=== PATIENT | female | born 1990 | race Caucasian/White ===

== ENCOUNTER 2019-05-12 21:20 | Inpatient (IN) ==
[2019-05-12] MEDS ORDERED: ONDANSETRON 4 MG/2 ML VIAL IV PRN (21:31)
[2019-05-12] MEDS ORDERED: BUTORPHANOL 2 MG/ML VIAL IV PRN (21:31)
[2019-05-12] MEDS: LACTATED RINGERS 1,000 ML IV SCH (21:40)
[2019-05-12 22:05] LABS: Basophils % 0.3 % (0.0-0.8); Eosinophils # 0.1 10*3/uL (0.0-0.87); Eosinophils % 0.8 % (0.00-10.9); Hematocrit 30.3 VOL% (35.7-47.0); Hemoglobin 9.2 GM/DL (12.0-16.0); Immature Granulocytes % 1.5 %; Immature Granulocytes Absolute 0.15 #; Lymphocytes # 2.1 10*3/uL (1.4-4.0); Lymphocytes % 20.3 % (21.3-54.2); Mean Corpuscular HGB Conc 30.4 GM/DL (32-36); Mean Platelet Volume 9.2 FL (9.6-12.0); Monocytes % 8.3 % (1.7-12.7); Neutrophils % 68.8 % (38.7-73.9); Platelet Count 275 T/CUMM (130-400); Red Blood Count 3.74 MC/CUMM (3.8-5.5); Red Cell Distribution Width 14.7 % (9.3-17.3); White Blood Count 10.3 T/CUMM (4-12)
[2019-05-12 22:25] LABS: Albumin 2.7 G/DL (3.4-5.0); Bilirubin,Total 0.4 MG/DL (0.2-1.0); Calcium 8.7 MG/DL (8.5-10.1); Osmolality,Calculated 277.4 MOS/KG (273-304); Total Protein 6.7 G/DL (6.4-8.3)
[2019-05-12] MEDS ORDERED: ACETAMINOPHEN 325 MG TABLET PO PRN (22:52)
[2019-05-13] MEDS ORDERED: OXYTOCIN/LR 20 UNIT/1,000 ML BAG IV SCH (04:00)
[2019-05-13] MEDS: AMPICILLIN INJ 2,000 MG in SODIUM CHLORIDE 0.9% 100 ML IV SCH ×3 (04:06→17:12)
[2019-05-13] MEDS ORDERED: diphenhydrAMINE 50 MG/1 ML VIAL IV PRN (04:40)
[2019-05-13] MEDS ORDERED: CITRIC ACID/SODIUM CITRATE 30 ML UDCUP PO ONE (04:40)
[2019-05-13] MEDS ORDERED: FAMOTIDINE 20 MG/2 ML VIAL IV ONE (04:40)
[2019-05-13] MEDS ORDERED: LACTATED RINGERS 250 ML IV PRN (04:40)
[2019-05-13] MEDS ORDERED: ePHEDrine 50 MG/ML AMP IV PRN (04:40)
[2019-05-13] MEDS ORDERED: NALOXONE 0.4 MG/ML VIAL IV PRN (04:40)
[2019-05-13] MEDS ORDERED: fentaNYL 2 MCG/ROPIV 0.2% EPID 100 ML EPIDURAL SCH (05:00)
[2019-05-13] MEDS: LACTATED RINGERS 1,000 ML IV SCH (05:10)
[2019-05-13 08:45] LABS: Apearance,Urine CLEAR (Clear); Bilirubin,Urine Negative (Negative); Blood, Urine Negative (Negative); Glucose,Urine (UA) Negative (Negative); Ketones,Urine 20 mg/dL (Negative); Mucus,Urine Occasional /LPF (Occasional); Nitrite,Urine Negative (Negative); Protein,Urine Negative; RBC,Urine <1 /HPF (0-4); Urine Color Straw (Yellow); Urine Urobilinogen < 2.0 EU/DL (0.2-1.0); WBC,Urine <1 /HPF (0-6)
[2019-05-13] MEDS ORDERED: fentaNYL 100 MCG/2 ML VIAL ONE (10:02)
[2019-05-13] MEDS ORDERED: miSOPROStol 200 MCG TABLET ONE (10:52)
[2019-05-13] MEDS ORDERED: BUTORPHANOL 1 MG/ML VIAL ONE (10:53)
[2019-05-13] MEDS ORDERED: METHYLERGONOVINE 0.2 MG/1 ML AMP ONE (10:54)
[2019-05-13] MEDS ORDERED: MEASLES/MUMPS/RUBELLA VACCINE 0.5 ML VIAL SUBCUT ONE (11:21)
[2019-05-13] MEDS ORDERED: BENZOCAINE 20%/MENTHOL 0.5% SPRAY 56 GM CAN TOP PRN (11:21)
[2019-05-13] MEDS ORDERED: RHO(D) IMMUNE GLOBULIN 300 MCG SYRINGE IM ONE (11:21)
[2019-05-13] MEDS ORDERED: OXYTOCIN/LR 20 UNIT/1,000 ML BAG IV ONE (11:21)
[2019-05-13] MEDS ORDERED: ONDANSETRON 4 MG/2 ML VIAL IV PRN (11:21)
[2019-05-13] MEDS ORDERED: oxyCODONE/ACETAMINOPHEN 5-325 MG TABLET PO PRN (11:21)
[2019-05-13] MEDS ORDERED: WITCH HAZEL PADS 100/JAR TOP PRN (11:21)
[2019-05-13] MEDS ORDERED: DIPH/TET/ACEL PERT BOOSTER VACCINE 0.5 ML VIAL IM ONE (11:21)
[2019-05-13] MEDS ORDERED: BISACODYL 10 MG SUPP RECTAL PRN (11:21)
[2019-05-13] MEDS ORDERED: ACETAMINOPHEN 325 MG TABLET PO PRN (11:21)
[2019-05-13] MEDS ORDERED: LANOLIN 50% CREAM 0.3 OZ TUBE TOP PRN (11:21)
[2019-05-13] MEDS ORDERED: HYDROCORTISONE 2.5% RECTAL CREAM 30 GM TUBE TOP PRN (11:21)
[2019-05-13] MEDS: IBUPROFEN 800 MG TABLET PO PRN (19:39)
[2019-05-13] MEDS: oxyCODONE/ACETAMINOPHEN 5-325 MG TABLET PO PRN (21:05)
[2019-05-13] MEDS: DOCUSATE SODIUM 100 MG CAPSULE PO SCH (21:07)
[2019-05-13] MEDS ORDERED: ALUMINUM/MAGNES/SIMETH MAX STR 30 ML UDCUP PO PRN (22:30)
[2019-05-14] MEDS: IBUPROFEN 800 MG TABLET PO PRN ×3 (04:43→19:52)
[2019-05-14] MEDS: oxyCODONE/ACETAMINOPHEN 5-325 MG TABLET PO PRN ×3 (04:44→19:53)
[2019-05-14 06:15] LABS: Basophils % 0.3 % (0.0-0.8); Eosinophils # 0.1 10*3/uL (0.0-0.87); Eosinophils % 0.7 % (0.00-10.9); Hematocrit 25.8 VOL% (35.7-47.0); Immature Granulocytes % 0.9 %; Lymphocytes # 2.5 10*3/uL (1.4-4.0); Lymphocytes % 21.2 % (21.3-54.2); Mean Corpuscular Volume 80.4 FL (87-102); Mean Platelet Volume 9.6 FL (9.6-12.0); Monocytes % 7.7 % (1.7-12.7); Neutrophils % 69.2 % (38.7-73.9); Platelet Count 202 T/CUMM (130-400); Red Blood Count 3.21 MC/CUMM (3.8-5.5); Red Cell Distribution Width 14.8 % (9.3-17.3); White Blood Count 11.5 T/CUMM (4-12)
[2019-05-14] MEDS: DOCUSATE SODIUM 100 MG CAPSULE PO SCH ×2 (08:52→21:39)
[2019-05-14] MEDS ORDERED: RHO(D) IMMUNE GLOBULIN 300 MCG SYRINGE IM ONE (10:30)
[2019-05-14] MEDS: FAMOTIDINE 20 MG TABLET PO SCH (21:39)
[2019-05-15] MEDS: IBUPROFEN 800 MG TABLET PO PRN (05:18)
[2019-05-15] MEDS: oxyCODONE/ACETAMINOPHEN 5-325 MG TABLET PO PRN (06:24)
[2019-05-15 07:45] VITALS: BP 79/59
[2019-05-15] MEDS: DOCUSATE SODIUM 100 MG CAPSULE PO SCH (08:25)
[2019-05-15] MEDS: FAMOTIDINE 20 MG TABLET PO SCH (08:25)
== END 2019-05-15 11:05 | disposition home or self-care (01) | DRG 807 ==
LOC: N.LDOUT 21:20 → N.LD 21:23 → N.OB 05-13 20:45
PROVIDERS: ADMIT Specialist; ATTEND Specialist

== ENCOUNTER 2021-01-31 05:21 | Inpatient (IN) ==
[2021-01-31] MEDS ORDERED: LACTATED RINGERS 1,000 ML IV SCH (05:30)
[2021-01-31] MEDS ORDERED: LACTATED RINGERS 1,000 ML IV ONE ×2 (05:30→07:23)
[2021-01-31] MEDS ORDERED: BUTORPHANOL 2 MG/ML VIAL IV PRN (05:30)
[2021-01-31] MEDS ORDERED: LACTATED RINGERS 500 ML IV PRN (05:30)
[2021-01-31] MEDS ORDERED: OXYTOCIN/LR 20 UNIT/1,000 ML BAG IV SCH (05:30)
[2021-01-31] MEDS ORDERED: MEPERIDINE 50 MG/1 ML VIAL IV PRN (05:30)
[2021-01-31] MEDS ORDERED: ONDANSETRON 4 MG/2 ML VIAL IV PRN ×2 (05:30→11:13)
[2021-01-31 06:16] LABS: Basophils # 0.1 10*3/uL (0.0-0.2); Basophils % 0.4 % (0.0-0.8); Eosinophils # 0.1 10*3/uL (0.0-0.87); Eosinophils % 0.9 % (0.00-10.9); Hematocrit 31.4 VOL% (35.7-47.0); Hemoglobin 9.9 GM/DL (12.0-16.0); Immature Granulocytes % 1.1 %; Immature Granulocytes Absolute 0.13 #; Lymphocytes # 3.3 10*3/uL (1.4-4.0); Lymphocytes % 27.2 % (21.3-54.2); Mean Corpuscular HGB Conc 31.5 GM/DL (32-36); Mean Corpuscular Volume 82.2 FL (87-102); Mean Platelet Volume 9.2 FL (9.6-12.0); Monocytes % 8.6 % (1.7-12.7); Neutrophils % 61.8 % (38.7-73.9); Platelet Count 343 T/CUMM (130-400); Red Blood Count 3.82 MC/CUMM (3.8-5.5); White Blood Count 11.9 T/CUMM (4-12)
[2021-01-31 06:36] LABS: Albumin 2.6 G/DL (3.4-5.0); Bilirubin,Total 1.2 MG/DL (0.2-1.0); Calcium 9.1 MG/DL (8.5-10.1); Osmolality,Calculated 274.5 MOS/KG (273-304); Potassium 3.6 MMOL/L (3.5-5.1)
[2021-01-31 06:45] LABS: Eosinophils 2 % (0-10); Hypochromasia 1+; Lymphocytes 25 % (20-55); Microcytosis 1+; Polychromasia Slight; Segmented Neutrophils 67 % (50-85); Total Cells Counted 100
[2021-01-31 06:46] LABS: Ovalocytes Slight
[2021-01-31] MEDS ORDERED: CITRIC ACID/SODIUM CITRATE 30 ML UDCUP PO ONE (07:23)
[2021-01-31] MEDS ORDERED: hydrOXYzine HCL 25 MG/1 ML VIAL IM PRN (07:23)
[2021-01-31] MEDS ORDERED: LACTATED RINGERS 250 ML IV PRN (07:23)
[2021-01-31] MEDS ORDERED: ePHEDrine 50 MG/ML VIAL IV PRN (07:23)
[2021-01-31] MEDS ORDERED: NALOXONE 0.4 MG/ML VIAL IV PRN (07:23)
[2021-01-31] MEDS ORDERED: PROMETHAZINE 25 MG/1 ML VIAL IM ONE (07:23)
[2021-01-31] MEDS ORDERED: diphenhydrAMINE 50 MG/1 ML VIAL IV PRN (07:23)
[2021-01-31] MEDS ORDERED: FAMOTIDINE 20 MG/2 ML VIAL IV ONE (07:23)
[2021-01-31] MEDS ORDERED: fentaNYL 2 MCG/ROPIV 0.2% EPID 100 ML EPIDURAL SCH (07:30)
[2021-01-31] MEDS ORDERED: miSOPROStoL 200 MCG TABLET ONE (10:12)
[2021-01-31] MEDS ORDERED: TRANEXAMIC ACID 1,000 MG/10 ML VIAL ONE (10:12)
[2021-01-31] MEDS ORDERED: OXYTOCIN/LR 20 UNIT/1,000 ML BAG IV ONE ×2 (10:12→11:13)
[2021-01-31] MEDS ORDERED: METHYLERGONOVINE 0.2 MG/1 ML AMP ONE (10:13)
[2021-01-31] MEDS ORDERED: CARBOPROST TROMETHAMINE 250 MCG/ML AMP IM ONE (10:13)
[2021-01-31 10:17] LABS: Bilirubin,Urine Negative (Negative); Blood, Urine Negative (Negative); Glucose,Urine (UA) Negative (Negative); Ketones,Urine 20 mg/dL (Negative); Mucus,Urine Occasional /LPF (Occasional); Nitrite,Urine Negative (Negative); Protein,Urine Negative; Squamous Epithelial Cell,Urine Occasional /HPF (0-10); Urine Appearance CLEAR (Clear); Urine Color Yellow (Yellow); Urine Specific Gravity 1.015 (1.001-1.035); Urine Urobilinogen < 2.0 EU/DL (0.2-1.0); WBC,Urine <1 /HPF (0-6)
[2021-01-31 10:58] LABS: Cord Arterial Blood HCO3 21.5 MMOL/L
[2021-01-31 11:00] LABS: Cord Venous Blood HCO3 21.2 MMOL/L; Cord Venous Blood PCO2 32.3 MMHG; Cord Venous Blood PO2 27.6 MMHG
[2021-01-31] MEDS ORDERED: BISACODYL 10 MG SUPP RECTAL PRN (11:13)
[2021-01-31] MEDS ORDERED: RHO(D) IMMUNE GLOBULIN 300 MCG SYRINGE IM ONE (11:13)
[2021-01-31] MEDS ORDERED: HYDROCORTISONE 2.5% RECTAL CREAM 30 GM TUBE TOP PRN (11:13)
[2021-01-31] MEDS ORDERED: oxyCODONE/ACETAMINOPHEN 5-325 MG TABLET PO PRN ×2 (11:13)
[2021-01-31] MEDS ORDERED: WITCH HAZEL PADS 100/JAR TOP PRN (11:13)
[2021-01-31] MEDS ORDERED: LANOLIN 50% CREAM 0.3 OZ TUBE TOP PRN (11:13)
[2021-01-31] MEDS ORDERED: BENZOCAINE 20%/MENTHOL 0.5% SPRAY 56 GM CAN TOP PRN (11:13)
[2021-01-31] MEDS ORDERED: DIPH/TET/ACEL PERT BOOSTER VACCINE 0.5 ML VIAL IM ONE (11:13)
[2021-01-31] MEDS ORDERED: MEASLES/MUMPS/RUBELLA VACCINE 0.5 ML VIAL SUBCUT ONE (11:13)
[2021-01-31] MEDS ORDERED: ACETAMINOPHEN 325 MG TABLET PO PRN (11:13)
[2021-01-31] MEDS: DOCUSATE SODIUM 100 MG CAPSULE PO SCH (20:29)
[2021-02-01] MEDS: IBUPROFEN 800 MG TABLET PO PRN ×2 (00:02→19:31)
[2021-02-01 06:37] LABS: Basophils # 0.1 10*3/uL (0.0-0.2); Basophils % 0.5 % (0.0-0.8); Eosinophils # 0.1 10*3/uL (0.0-0.87); Eosinophils % 1.2 % (0.00-10.9); Hematocrit 27.3 VOL% (35.7-47.0); Hemoglobin 8.6 GM/DL (12.0-16.0); Immature Granulocytes % 1.1 %; Immature Granulocytes Absolute 0.13 #; Lymphocytes # 3.6 10*3/uL (1.4-4.0); Mean Corpuscular HGB Conc 31.5 GM/DL (32-36); Mean Corpuscular Volume 81.7 FL (87-102); Mean Platelet Volume 9.8 FL (9.6-12.0); Monocytes % 7.6 % (1.7-12.7); Neutrophils % 59.6 % (38.7-73.9); Platelet Count 231 T/CUMM (130-400); Red Blood Count 3.34 MC/CUMM (3.8-5.5); Red Cell Distribution Width 15.1 % (9.3-17.3); White Blood Count 12.1 T/CUMM (4-12)
[2021-02-01] MEDS: DOCUSATE SODIUM 100 MG CAPSULE PO SCH ×2 (10:05→19:30)
[2021-02-01] MEDS ORDERED: RHO(D) IMMUNE GLOBULIN 300 MCG SYRINGE IM ONE (14:29)
[2021-02-02 09:32] VITALS: BP 96/54
[2021-02-02] MEDS: DOCUSATE SODIUM 100 MG CAPSULE PO SCH (10:52)
== END 2021-02-02 10:50 | disposition home or self-care (01) | DRG 807 ==
LOC: N.LD 05:21 → N.OB 14:03
PROVIDERS: ADMIT Specialist; ATTEND Specialist